=== PATIENT | male | born 1955 | race Caucasian/White ===

== ENCOUNTER 2022-12-14 06:41 | Emergency (ER) | payer OTHER, SELFPAY ==
[2022-12-14 06:45] VITALS: BP 155/92; PULSE 104; RESP 20; TEMP 36.6; O2SAT 97
--- NOTE | 2022-12-14 07:18 | ED.GENADULT ---
HPI - General Adult General Chief complaint: Wound/Laceration Stated complaint: L Leg Laceration Time Seen by Provider: 12/14/22 07:17 History of Present Illness HPI narrative: The patient is a 67-year-old male with history of psoriasis, hypertension, hyperlipidemia, anxiety, who is a resident of an assisted living facility. He is not on antiplatelet or anticoagulant agents. He had itching this morning in the left lower extremity from a scab: he scratched it, it started bleeding, venous bleeding from a varicose vein which was underlying the skin lesion. Bleeding is controlled with pressure and a dressing. He was referred here for evaluation. Does have varicose veins. No dizziness. No other complaints. Last tetanus unknown. Related Data Allergies Allergy/AdvReac Type Severity Reaction Status Date / Time No Known Allergies Allergy Verified 12/14/22 06:59 Review of Systems Review of Systems: All systems reviewed & are unremarkable except as noted in HPI and below Constitutional: Constitutional: Denies chills, Denies excessive sweating, Denies fatigue, Denies fever(s), Denies headache(s) and Denies weakness Eyes: Eyes: Denies change in vision and Denies photophobia ENT: Denies dysphagia, Denies dizziness, Denies headache(s), Denies lip swelling, Denies nasal congestion, Denies sore throat and Denies tongue swelling Cardiovascular: Cardiovascular: Denies chest pain, Denies syncope, Denies rapid heart rate and Denies dyspnea Respiratory: Respiratory: Denies cough, Denies dyspnea and Denies wheezing Gastrointestinal: Gastrointestinal: Denies abdominal pain, Denies constipation, Denies dysphagia, Denies diarrhea, Denies nausea and Denies vomiting Genitourinary: Genitourinary: Denies hematuria, Denies dysuria, Denies urinary frequency and Denies urinary urgency Musculoskeletal: Musculoskeletal: Denies back pain, Denies myalgias, Denies arthralgias, Denies joint swelling and Denies numbness Integumentary/Breasts: Skin/Breast: Denies pruritus, Denies erythema and Denies rash (Bleeding (controlled) from a varicose vein in the left lower leg) Neurologic: Denies confusion, Denies dizziness, Denies syncope, Denies headache(s), Denies focal weakness, Denies numbness and Denies weakness Psychiatric: Psychiatric: Denies anxiety and Denies confusion Endocrine: Endocrine: Denies excessive sweating and Denies fatigue Hematologic/Lymphatic: Hematologic/Lymphatic: Denies easy bleeding and Denies easy bruising Allergic/Immunologic: Allergic/Immunologic: Denies lip swelling, Denies tongue swelling and Denies wheezing Exam Const: General: healthy appearing, no acute distress, alert and well nourished Nutritional Appearance: well nourished Orientation/consciousness: patient oriented x3 Limitations: no limitations HENMT: Head: normal to inspection Ears: external ears normal Face/Nose/Sinus: normal facial exam Face and sinus: normal facial exam Mouth: Yes moist mucous membranes Throat: posterior oropharynx normal Eyes: Conjunctivae: conjunctivae normal Pupils: Equal, round and reactive pupils present EOM: EOMs intact bilaterally Neck: Neck: normal visual inspection and no meningeal signs Chest: Chest palpation & inspection: normal inspection of the chest and no tenderness Resp: Effort & Inspection: normal respiratory effort and not labored Auscultation: clear to auscultation bilaterally, no crackles, no rhonchi and no wheezes Cardio: Rate: regular rate Rhythm: regular rhythm Heart sounds: no murmurs GI: Inspection: non-distended GI Palp: Yes Soft to palpation, No Tenderness to palpation present (GI), No Guarding due to palpation present (GI) and No Rebound tenderness present : General: Yes no CVA tenderness Back/Spine/Pelvis: Back: no CVA tenderness Cervical Spine: No Cervical spine tenderness Thoracic/Lumbar Spine: No thoracic spinal tenderness Skin: General skin exam: normal color Rashes: no rashes Wounds: no wounds
--- NOTE | 2022-12-14 07:35 | PC.NURSE ---
0715 went into assess pt and look at spot on his leg and it started bleeding again Dr Herrera present and will suture the site
[2022-12-14 07:40] VITALS: BP 142/88; PULSE 85; RESP 18; TEMP 36.7; O2SAT 100
[2022-12-14] MEDS: TETANUS,DIPHTHERIA,AC PERTUSSIS ADULT 0.5 ML (ADACEL) IM (07:52)
[2022-12-14] MEDS: NEOMYCIN/POLYMYXIN/BACITRACIN OINTMENT 15 GM TUBE 1 APPLIC TOPICAL (07:56)
== END 2022-12-14 08:18 | disposition home or self-care (01) ==
PROVIDERS: Emergency Provider Emergency Medicine; PCP Internal Medicine
DX: I83.892 Varicose veins of left lower extremity with other complications (principal); S80.812A Abrasion, left lower leg, initial encounter; X58.XXXA Exposure to other specified factors, initial encounter; I10 Essential (primary) hypertension; E78.5 Hyperlipidemia, unspecified; L40.9 Psoriasis, unspecified; F41.9 Anxiety disorder, unspecified; Z23 Encounter for immunization
CPT/HCPCS: 12001; 90471; 90715; 99283

== ENCOUNTER 2023-06-03 07:01 | Outpatient (CLI) | payer OTHER, SELFPAY ==
[2023-06-03 07:16] LABS: Basophils Absolute Auto 0.02 K/mm3 (0.00-0.10); Basophils Percent Auto 0.4 % (0.0-1.0); Eosinophils Absolute Auto 0.07 K/mm3 (0.02-0.50); Eosinophils Percent Auto 1.5 % (1.0-6.0); Hematocrit 43.4 % (37.0-46.0); Hemoglobin 13.7 g/dL (12.4-15.3); Immature Granulocyte Absolute 0.02 K/mm3 (0.00-0.00); Immature Granulocyte Percent A 0.4 % (0.0-0.0); Lymphocytes Absolute Auto 1.35 K/mm3 (1.10-4.50); Lymphocytes Percent Auto 28.1 % (18.0-42.0); Mean Corpuscular HGB Conc 31.6 g/dL (32.0-36.0); Mean Corpuscular Hemoglobin 28.5 pg (27.0-31.0); Mean Corpuscular Volume 90.2 fL (78.0-102.0); Monocytes Absolute Auto 0.59 K/mm3 (0.10-0.90); Monocytes Percent Auto 12.3 % (2.0-11.0); Neutrophils Absolute Auto 2.8 K/mm3 (1.7-7.2); Neutrophils Percent Auto 57.3 % (50.0-70.0); Platelet Count Result 282 K/mm3 (150-420); Red Blood Count 4.81 M/mm3 (4.70-6.10); Red Cell Distribution Width 14.4 % (11.6-14.4); White Blood Count 4.8 K/mm3 (4.8-10.8)
== END 2023-06-03 07:02 | disposition home or self-care (01) ==
PROVIDERS: PCP Internal Medicine; Visit Provider Internal Medicine
DX: D64.9 Anemia, unspecified (principal)
CPT/HCPCS: 36415; 85025

== ENCOUNTER 2023-10-27 21:12 | Emergency (ER) | payer OTHER, SELFPAY ==
--- NOTE | ~2023-10-27 | CT_ITS ---
CT angiogram of the left lower extremity CLINICAL HISTORY: Left lower leg wound, bleeding TECHNIQUE: Following intravenous administration of 150 cc of Omnipaque 350 contrast, axial imaging of the left lower extremity was performed. 3-D reconstructed images were performed. Dose reduction tech nique was used on this scan by utilizing automated exposure control and iterative reconstruction tech nique. The dose-length product (DLP) was 1466.58 mGy-cm. FINDINGS: Visualized distal abdominal aorta, left common iliac artery, and left external iliac artery are normal. Left common femoral artery, profunda femoral artery, left superficial femoral artery, an d left popliteal artery are unremarkable. Popliteal trifurcation is unremarkable. The left posterior tibial, peroneal, and anterior tibial arteries are patent, without evidence of active extravasation. Dorsalis pedis artery is patent. Visualized musculature unremarkable. There is mild subcutaneous soft tissue edema of the distal calf, nonspecific. No hematoma evident. No joint effusion evident. Questionable small fracture from the cu boid laterally, possibly chronic. Remaining osseous structures appear intact. IMPRESSION: No significant vascular abnormality identified. No evidence of extravasation of contrast. Possible cuboid fracture, possibly chronic. Correlate for point tenderness/trauma this region. Reviewed, dictated and finalized at location . IMPRESSION: No significant vascular abnormality identified. No evidence of extravasation of contrast. Possible cuboid fracture, possibly chronic. Correlate for point tenderness/trau ma this region.
[2023-10-27 21:24] VITALS: BP 156/88; PULSE 102; RESP 18; TEMP 36.7; O2SAT 98
--- NOTE | 2023-10-27 22:12 | ED.LOWEXIN ---
HPI - Extremity Injury (Lower) General Chief Complaint: Extremity Injury, Lower Stated Complaint: L Leg wound Source: patient and EMS Mode of arrival: ambulatory Limitations: no limitations History of Present Illness HPI Narrative: patient is a 68-year-old male not on blood thinners here with a left lower extremity wound that is bleeding and squirting arterial blood. EMS was called to the facility where he lives and sent to the ER for further evaluation. MD complaint: leg injury ( Left lower leg) Onset (ago): hour(s) (2) Type of Injury: laceration ( patient hit his pants and belt on his left lower extremity and caused a wound) Place: home Severity: moderate Severity scale (1-10): 1 Relieving factors: nothing Exacerbating factors: nothing Context: direct blow Other symptoms: none Treatments prior to arrival: bandage Related Data Home Medications Medication Instructions Recorded Confirmed cetirizine 10 mg tablet 10 mg PO DAILY 10/27/23 10/27/23 clonazepam 0.5 mg tablet 0.5 mg PO DAILY 10/27/23 10/27/23 fluticasone propionate 50 2 spray intranasal DAILY 10/27/23 10/27/23 mcg/actuation nasal spray,suspension lisinopril 20 mg tablet 20 mg PO DAILY 10/27/23 10/27/23 lovastatin 40 mg tablet 40 mg PO DAILY 10/27/23 10/27/23 montelukast 10 mg tablet 10 mg PO DAILY 10/27/23 10/27/23 Allergies Allergy/AdvReac Type Severity Reaction Status Date / Time No Known Allergies Allergy Verified 10/27/23 21:34 Review of Systems Review of Systems: All systems reviewed & are unremarkable except as noted in HPI and below Constitutional: Constitutional: Reports no additional constitutional complaints Eyes: Eyes: Reports no additional eye complaints ENT: Reports system reviewed and no additional complaints, except as documented Cardiovascular: Cardiovascular: Reports no additional cardiovascular complaints Respiratory: Respiratory: Reports no additional respiratory complaints Gastrointestinal: Gastrointestinal: Reports no additional gastrointestinal complaints Genitourinary: Genitourinary: Reports no additional male genitourinary complaints Musculoskeletal: Musculoskeletal: Reports no additional musculoskeletal complaints Integumentary/Breasts: Skin/Breast: Reports system reviewed and no additional complaints, except as docu Neurologic: Reports system reviewed and no additional complaints, except as documented Psychiatric: Psychiatric: Reports no additional psychiatric complaints Endocrine: Endocrine: Reports no additional endocrine complaints Hematologic/Lymphatic: Hematologic/Lymphatic: Reports no additional hematologic/lymphatic complaints Allergic/Immunologic: Allergic/Immunologic: Reports no additional allergic/immunologic complaints Exam Const: General: healthy appearing Nutritional Appearance: well nourished Orientation/consciousness: patient oriented x3 HENMT: Head: normal to inspection Ears: external ears normal Face/Nose/Sinus: Normal external nose present Eyes: Conjunctivae: conjunctivae normal Pupils: Equal, round and reactive pupils present EOM: EOMs intact bilaterally Neck: Neck: normal visual inspection Chest: Chest palpation & inspection: normal inspection of the chest Resp: Effort & Inspection: normal respiratory effort and not labored Auscultation: clear to auscultation bilaterally Cardio: Rate: regular rate Rhythm: regular rhythm Heart sounds: no murmurs GI: Inspection: non-distended GI Palp: Yes Soft to palpation and No Tenderness to palpation present (GI) Auscultation: normal bowel sounds : General: Yes bladder normal to palpation Back/Spine/Pelvis: Back: no CVA tenderness Skin: General skin exam: normal color Rashes: no rashes Wounds: wound noted and wounds noted Other: left lower leg has a compression dressing and after 1 hour we removed the pressure dressing and it started to score in a stream of arterial blood so another pressure dressing was placed and a CT scan
--- NOTE | 2023-10-27 23:11 | PC.NURSE ---
2300 assumed care of patient. Pt resting on stretcher pt assisted to bedside to use urinal.
--- NOTE | 2023-10-27 23:12 | PC.NURSE ---
2310 removed dressing to left lower leg with Dr. Moreno. Bleeding noted when dressing removed. Pressure dressing reapplied at this time.
[2023-10-27 23:28] LABS: Basophils Absolute Auto 0.03 K/mm3 (0.00-0.10); Basophils Percent Auto 0.4 % (0.0-1.0); Eosinophils Absolute Auto 0.05 K/mm3 (0.02-0.50); Eosinophils Percent Auto 0.6 % (1.0-6.0); Hematocrit 43.1 % (37.0-46.0); Hemoglobin 13.6 g/dL (12.4-15.3); Immature Granulocyte Absolute 0.03 K/mm3 (0.00-0.00); Immature Granulocyte Percent A 0.4 % (0.0-0.0); Lymphocytes Absolute Auto 0.95 K/mm3 (1.10-4.50); Lymphocytes Percent Auto 11.8 % (18.0-42.0); Mean Corpuscular HGB Conc 31.6 g/dL (32-36); Mean Corpuscular Hemoglobin 28.4 pg (27.0-31.0); Mean Platelet Volume 9.3 fl (8.7-11.0); Monocytes Absolute Auto 0.73 K/mm3 (0.10-0.90); Monocytes Percent Auto 9.1 % (2.0-11.0); Neutrophils Absolute Auto 6.25 K/mm3 (1.70-7.20); Neutrophils Percent Auto 77.7 % (50.0-70.0); Platelet Count Result 361 K/mm3 (150-420); Red Blood Count 4.79 M/mm3 (4.70-6.10); Red Cell Distribution Width 13.5 % (11.6-14.4)
[2023-10-27 23:42] LABS: INR 0.9; Partial Thromboplastin Time 28.4 Sec (23.9-30.70); Prothrombin Time 10.4 Seconds (9.50-12.1)
[2023-10-27 23:46] LABS: Alanine Aminotransferase 20 U/L (16-63); Albumin Level 3.5 g/dL (3.4-5.0); Alkaline Phosphatase 71 U/L (46-116); Anion Gap 10 mmol/L (4-12); Aspartate Amino Transferase 18 U/L (15-37); Bilirubin,Total 0.2 mg/dL (0.00-1.00); Blood Urea Nitrogen 19 mg/dL (7-18); Calcium 9.1 mg/dL (8.5-10.1); Carbon Dioxide 28 mmol/L (21-32); Chloride 101 mmol/L (98-108); Estimated CRCL calculation 59 ml/min; Estimated Glomerular Filt Rate > 60; Glucose 123 mg/dL (70-99); Osmolality Calculated 291 mOsm/kg (285-295); Potassium 4.7 mmol/L (3.5-5.1); Sodium 139 mmol/L (136-145); Total Protein 7.8 g/dL (6.4-8.2)
--- NOTE | 2023-10-28 00:43 | PC.NURSE ---
0043 pt resting on stretcher continued awaiting for ct scan, no bleeding noted to left lower leg. Pressure dressing remains intact.
--- NOTE | 2023-10-28 01:13 | PC.NURSE ---
pt to ct via w
[2023-10-28 03:12] VITALS: BP 113/75; PULSE 69; RESP 18
--- NOTE | 2023-10-28 03:55 | PC.NURSE ---
Addendum entered by Maria Dolores Stafford RN 10/28/23 03:58: Pt awake at this time, sitting bedside, explained wait time for CT results. Pt is alert, call guajardo at side. Original Note: Pt sleeping, RR even and nonlabored. Awaiting CT report.
--- NOTE | 2023-10-28 04:55 | PC.NURSE ---
Pt sleeping, resting comfortably, pressure dressing remains on lower leg, RR even and nonlabored, call guajardo at pt side. Still awaiting CT report.
[2023-10-28 06:05] VITALS: BP 156/86; PULSE 88; RESP 20; O2SAT 98
--- NOTE | 2023-10-28 06:54 | PC.NURSE ---
Call back to [facility] for pt to be d/c back into their care. Pts. caregiver to come product picker pt. Pressure dressing in place p bleed was cauterized. POC d/c instructions will be given to pt and caregiver upon arrival.
[2023-10-28 07:24] VITALS: BP 160/94; PULSE 69; RESP 20; TEMP 37.1; O2SAT 99
== END 2023-10-28 07:24 | disposition home or self-care (01) ==
PROVIDERS: Emergency Provider Emergency Medicine; PCP Internal Medicine
DX: R58 Hemorrhage, not elsewhere classified (principal)
CPT/HCPCS: 12001; 36415; 73706; 80053; 85025; 85610; 85730; 99284; Q9967